=== PATIENT | male | born 1985 | race African-American/Black ===

== ENCOUNTER 2017-09-04 13:08 | Emergency (ER) | payer SELFPAY ==
[~2017-09-04] VITALS: Ht 188 cm; Wt 100.0 kg
[2017-09-04 13:21] VITALS: BP 103/62
[2017-09-04] MEDS ORDERED: IBUPROFEN 800MG TABLET PO ONE (13:45)
== END 2017-09-04 15:31 | disposition home or self-care (01) ==
LOC: ER 14:13
DX: S80.02XA Contusion of left knee, initial encounter (principal); X58.XXXA Exposure to other specified factors, initial encounter; Y93.89 Activity, other specified; Y92.89 Other specified places as the place of occurrence of the external cause; Y99.8 Other external cause status
CPT/HCPCS: 29505; 73562; 99284; L1830; Z7610